=== PATIENT | male | born 1990 | race Caucasian/White ===

== ENCOUNTER 2023-08-01 16:19 | Emergency (ER) | payer BC ==
[~2023-08-01] VITALS: Ht 183.5 cm; Wt 66.3 kg
[2023-08-01 16:44] VITALS: BP 124/75; PULSE 75; RESP 16; TEMP 98.5; O2SAT 100
[2023-08-01 17:12] LABS: BILIRUBIN,URINE NEGATIVE (Neg); CLARITY,URINE CLEAR (Clear); COLOR,URINE STRAW (Yellow); GLUCOSE, URINE NEGATIVE (Neg); KETONES,URINE NEGATIVE (Neg); LEUKOCYTE ESTERASE ,URINE NEGATIVE (Neg); NITRITES, URINE NEGATIVE (Neg); OCCULT BLOOD,URINE NEGATIVE (Neg); PH,URINE 6.5 (4.8-8.0); PROTEIN,URINE NEGATIVE (Neg); UROBILINOGEN,URINE 0.2 E.U/dL (0.2-1.0)
[2023-08-01 17:24] LABS: UA COLLECTION TYPE NON-SPECIFIED
== END 2023-08-01 20:13 | disposition left against medical advice (07) ==
LOC: ER 16:20
DX: R10.9 Unspecified abdominal pain (principal); Z53.21 Procedure and treatment not carried out due to patient leaving prior to being seen by health care provider
CPT/HCPCS: 81003; 99281